=== PATIENT | female | born 2000 | race African-American/Black ===

== ENCOUNTER 2021-06-19 13:47 | Emergency (ER) | payer MEDICAID ==
[~2021-06-19] VITALS: Ht 172.7 cm; Wt 63.0 kg
[2021-06-19] MEDS ORDERED: MORPHINE SULFATE 4 MG/ML CPJ (NOT FOR IM USE) IV STA (14:00)
[2021-06-19] MEDS ORDERED: TETANUS, DIPHTHERIA, PERTUSSIS VAC/PF 0.5ML (>10YR OLD) IM ONE (14:00)
[2021-06-19] MEDS ORDERED: ONDANSETRON HCL 4MG/2ML INJ IV STA (14:00)
[2021-06-19] MEDS ORDERED: SODIUM CHLORIDE 0.9% 1,000 ML IV ONE (14:00)
[2021-06-19 14:59] LABS: BASOPHILS % 0.9 % (0.0-2.0); EOSINOPHILS % 0.8 % (0.0-5.0); HEMATOCRIT. 40.3 % (36.0-48.0); LYMPHOCYTES % 46.6 % (20.0-50.0); MEAN CORPUSCULAR HEMOGLOBIN 33.3 pg (28.0-32.0); MEAN PLATELET VOLUME 9.6 fl (7.4-10.4); MONOCYTES % 6.2 % (2.0-8.0); NEUTROPHILS % 45.5 % (40.0-76.0); PLATELET 177 x1000/uL (130-400); RED BLOOD CELL COUNT 4.19 mill/uL (4.2-5.4); RED CELL DISTRIBUTION WIDTH 13.1 % (11.6-14.6)
[2021-06-19 15:05] LABS: CHLORIDE 109 mEq/L (98-107)
[2021-06-19 15:12] LABS: HCG SCREEN NEGATIVE
[2021-06-19] MEDS ORDERED: IOHEXOL-300 100 ML BOTTLE ONE (16:13)
[2021-06-19 16:25] LABS: CLARITY URINE CLEAR (CLEAR); COLOR URINE YELLOW (YELLOW); KETONES URINE NEGATIVE (NEGATIVE); LEUKOCYTE ESTERASE URINE TRACE (NEGATIVE); NITRITE URINE NEGATIVE (NEGATIVE); OCCULT BLOOD URINE NEGATIVE (NEGATIVE); PROTEIN URINE NEGATIVE (NEGATIVE); SPECIFIC GRAVITY URINE 1.011 (1.005-1.030); UROBILINOGEN URINE 0.2 E.U./dL (0.2-1.0)
[2021-06-19] MEDS ORDERED: IBUP-2028 MT (17:52)
[2021-06-19] MEDS ORDERED: BO1 TP (17:52)
[2021-06-19] MEDS ORDERED: BACITRACIN ZINC OINT UDPKT TOP ONE (18:00)
[2021-06-19 19:08] VITALS: BP 115/62
== END 2021-06-19 19:12 | disposition home or self-care (01) ==
LOC: ER 13:47
DX: S31.813A Puncture wound without foreign body of right buttock, initial encounter (principal); W34.00XA Accidental discharge from unspecified firearms or gun, initial encounter; Y93.01 Activity, walking, marching and hiking; Y92.89 Other specified places as the place of occurrence of the external cause; Y99.8 Other external cause status
CPT/HCPCS: 36415; 74177; 80053; 81003; 83690; 84703; 85025; 86850; 86900; 86901; 90471; 90715; 96361; 96374; 96375; 99285; A4217; J2270; J2405; J7030; Q9967

== ENCOUNTER 2022-11-01 11:10 | Emergency (ER) | payer MEDICAID ==
[~2022-11-01] VITALS: Ht 167.6 cm; Wt 59.1 kg
[~2022-11-01 11:10] MED LIST: BO1 TP; IBUP-2028 MT
[2022-11-01 12:03] VITALS: O2SAT 100
[2022-11-01] MEDS ORDERED: KETOROLAC 30MG/ML VIAL IM ONE (12:45)
[2022-11-01 13:37] VITALS: BP 110/61; PULSE 82; RESP 16; TEMP 98.6
[2022-11-01] MEDS ORDERED: IBUP-2029 MT (14:29)
== END 2022-11-01 14:57 | disposition home or self-care (01) ==
LOC: ER 11:10
DX: M79.652 Pain in left thigh (principal); W01.0XXA Fall on same level from slipping, tripping and stumbling without subsequent striking against object, initial encounter; Y93.89 Activity, other specified; Y92.89 Other specified places as the place of occurrence of the external cause; Y99.8 Other external cause status
CPT/HCPCS: 73502; 73552; 73562; 81025; 99284

== ENCOUNTER 2024-08-25 14:40 | Emergency (ER) | payer MEDICAID ==
[~2024-08-25] VITALS: Ht 167.6 cm; Wt 74.0 kg
[~2024-08-25 14:40] MED LIST changes: +IBUP-2029 MT
[2024-08-25 14:44] VITALS: O2SAT 100
[2024-08-25 14:46] VITALS: BP 123/62; PULSE 63; RESP 16; TEMP 36.8; O2SAT 100
[2024-08-25 15:36] LABS: CLARITY URINE CLEAR (CLEAR); COLOR URINE YELLOW (YELLOW); GLUCOSE URINE NEGATIVE (NEGATIVE); KETONES URINE NEGATIVE (NEGATIVE); LEUKOCYTE ESTERASE URINE 1+ (NEGATIVE); NITRITE URINE NEGATIVE (NEGATIVE); OCCULT BLOOD URINE NEGATIVE (NEGATIVE); PH URINE 5.5 (4.5-8.0); PROTEIN URINE TRACE (NEGATIVE); SPECIFIC GRAVITY URINE 1.023 (1.005-1.030); UROBILINOGEN URINE 0.2 E.U./dL (0.2-1.0)
[2024-08-25 15:50] LABS: BACTERIA URINE TRACE; RBC URINE 0-2 /hpf (0-2); SQUAMOUS EPITHELIAL CELL URINE 2+ /lpf (RARE/1+)
[2024-08-25] MEDS ORDERED: NITR-87 MT (16:07)
[2024-08-28 04:07] LABS: CHLAMYDIA TRACHOMATIS NAA Negative (Negative); NEISSERIA GONORRHOEAE NAA Negative (Negative)
== END 2024-08-25 16:21 | disposition home or self-care (01) ==
LOC: ER 14:40
DX: Z11.3 Encounter for screening for infections with a predominantly sexual mode of transmission (principal)
CPT/HCPCS: 81003; 87491; 87591; 99283

== ENCOUNTER 2024-10-16 05:40 | Emergency (ER) | payer MEDICAID ==
[~2024-10-16] VITALS: Ht 162.6 cm; Wt 65.0 kg
[~2024-10-16 05:40] MED LIST changes: +NITR-87 MT
[2024-10-16 05:59] VITALS: O2SAT 100
[2024-10-16 06:49] LABS: BASOPHILS % 0.7 % (0.0-2.0); EOSINOPHILS % 0.5 % (0.0-5.0); HEMATOCRIT. 40.3 % (36.0-48.0); HEMOGLOBIN. 14.0 g/dL (12.0-16.0); LYMPHOCYTES % 27.2 % (20.0-50.0); MEAN PLATELET VOLUME 10.0 fl (7.4-10.4); MONOCYTES % 8.0 % (2.0-8.0); NEUTROPHILS % 63.6 % (40.0-76.0); PLATELET 162 x1000/uL (130-400); RED BLOOD CELL COUNT 4.22 mill/uL (4.2-5.4); RED CELL DISTRIBUTION WIDTH 13.3 % (11.6-14.6)
[2024-10-16 07:00] LABS: CREATININE 0.7 mg/dL (0.6-1.0); UREA NITROGEN BLOOD 14 mg/dL (9-23)
[2024-10-16 07:01] LABS: ETHANOL BLOOD < 10 mg/dL (<10)
[2024-10-16 07:02] LABS: ASPARTATE AMINOTRANSFERASE 20 IU/L (<34); BILIRUBIN DIRECT 0.1 mg/dL (<=3.0); BILIRUBIN TOTAL 0.6 mg/dL (0.1-1.0)
[2024-10-16 07:03] LABS: PROTEIN TOTAL 7.1 g/dL (6.0-8.3)
[2024-10-16 07:42] LABS: HCG SCREEN POSITIVE
[2024-10-16 08:02] LABS: CLARITY URINE CLEAR (CLEAR); COLOR URINE YELLOW (YELLOW); GLUCOSE URINE NEGATIVE (NEGATIVE); KETONES URINE 1+ (NEGATIVE); LEUKOCYTE ESTERASE URINE NEGATIVE (NEGATIVE); NITRITE URINE NEGATIVE (NEGATIVE); OCCULT BLOOD URINE NEGATIVE (NEGATIVE); PH URINE 5.5 (4.5-8.0); PROTEIN URINE 1+ (NEGATIVE); SPECIFIC GRAVITY URINE 1.026 (1.005-1.030); UROBILINOGEN URINE 0.2 E.U./dL (0.2-1.0)
[2024-10-16 08:25] LABS: BACTERIA URINE NONE SEEN; RBC URINE 0-2 /hpf (0-2); SQUAMOUS EPITHELIAL CELL URINE 2+ /lpf (RARE/1+); WBC URINE 0-2 /hpf (0-2); YEAST URINE NONE SEEN
[2024-10-16] MEDS ORDERED: METHYLPREDNISOLONE SOD SUCC 125MG/2ML (ACT-O-VIAL) IV ONE (08:30)
[2024-10-16] MEDS ORDERED: IPRATROPIUM/ALBUTEROL 0.5-3(2.5)MG/3ML NEB HHN ONE (08:30)
[2024-10-16 09:15] VITALS: BP 114/63; PULSE 57; RESP 13; TEMP 36.6; O2SAT 100
[2024-10-16 10:37] LABS: *AMPHETAMINES SCREEN URINE NEGATIVE (NEGATIVE); *BARBITURATES SCREEN URINE NEGATIVE (NEGATIVE); *BENZODIAZEPINES SCREEN URINE NEGATIVE (NEGATIVE); *COCAINE SCREEN URINE NEGATIVE (NEGATIVE)
[2024-10-16 10:38] LABS: CANNABINOID URINE SCREEN PRESUMPTIVE POSITIVE (NEGATIVE); ECSTASY MDMA SCREEN URINE NEGATIVE (NEGATIVE); METHADONE URINE SCREEN NEGATIVE (NEGATIVE); OPIATES URINE SCREEN NEGATIVE (NEGATIVE); PHENCYCLIDINE URINE SCREEN NEGATIVE (NEGATIVE)
== END 2024-10-16 09:30 | disposition home or self-care (01) ==
LOC: ER 05:40 → CANBEDREQ 08:57 → ER 09:30
DX: O20.0 Threatened abortion (principal); O26.891 Other specified pregnancy related conditions, first trimester; G40.909 Epilepsy, unspecified, not intractable, without status epilepticus; Z3A.01 Less than 8 weeks gestation of pregnancy
CPT/HCPCS: 36415; 76801; 80048; 80076; 80305; 80320; 81003; 84702; 84703; 85025; 86850; 86900; 99284; 99285; J2919; G0480

== ENCOUNTER 2024-11-29 23:26 | Emergency (ER) | payer MEDICAID ==
[~2024-11-29] VITALS: Ht 167.6 cm; Wt 75.0 kg
[~2024-11-29 23:26] MED LIST changes: +IBUP-1455 MT; -IBUP-2029 MT
[2024-11-29 23:42] VITALS: O2SAT 98
[2024-11-30 01:51] LABS: BASOPHILS % 0.7 % (0.0-2.0); EOSINOPHILS % 0.8 % (0.0-5.0); HEMATOCRIT. 33.9 % (36.0-48.0); HEMOGLOBIN. 11.9 g/dL (12.0-16.0); LYMPHOCYTES % 34.7 % (20.0-50.0); MEAN PLATELET VOLUME 9.0 fl (7.4-10.4); MONOCYTES % 8.7 % (2.0-8.0); NEUTROPHILS % 55.1 % (40.0-76.0); PLATELET 188 x1000/uL (130-400); RED BLOOD CELL COUNT 3.57 mill/uL (4.2-5.4); RED CELL DISTRIBUTION WIDTH 13.1 % (11.6-14.6)
[2024-11-30 02:05] LABS: CREATININE 0.6 mg/dL (0.6-1.0); UREA NITROGEN BLOOD 7 mg/dL (9-23)
[2024-11-30 02:26] LABS: B-HCG QUANTITATIVE 135542 mIU/mL (<6)
[2024-11-30 04:15] VITALS: BP 107/53; PULSE 55; RESP 17; TEMP 36.8; O2SAT 99
== END 2024-11-30 04:25 | disposition home or self-care (01) ==
LOC: ER 23:26
DX: O20.0 Threatened abortion (principal); N89.8 Other specified noninflammatory disorders of vagina; Z79.899 Other long term (current) drug therapy; Z3A.10 10 weeks gestation of pregnancy
CPT/HCPCS: 36415; 99285; 80048; 84702; 85025; 86850; 86900; 86901; 76801; 76817; Z7610

== ENCOUNTER 2025-03-01 23:32 | Emergency (ER) | payer MEDICAID ==
[~2025-03-01] VITALS: Ht 167.6 cm; Wt 78.1 kg
[2025-03-01 23:42] VITALS: TEMP 37.1; O2SAT 98
[2025-03-02 00:32] VITALS: TEMP 98.8
[2025-03-02] MEDS: ACETAMINOPHEN 500MG TABLET PO ONE (00:32)
[2025-03-02] MEDS: ONDANSETRON HCL 4MG/2ML INJ IV ONE (00:32)
[2025-03-02] MEDS: SODIUM CHLORIDE 0.9% 1,000 ML IV ONE (00:34)
[2025-03-02 01:10] LABS: CLARITY URINE CLEAR (CLEAR); COLOR URINE YELLOW (YELLOW); GLUCOSE URINE NEGATIVE (NEGATIVE); KETONES URINE 4+ (NEGATIVE); LEUKOCYTE ESTERASE URINE 2+ (NEGATIVE); NITRITE URINE NEGATIVE (NEGATIVE); OCCULT BLOOD URINE NEGATIVE (NEGATIVE); PH URINE 5.5 (4.5-8.0); PROTEIN URINE TRACE (NEGATIVE); SPECIFIC GRAVITY URINE 1.022 (1.005-1.030); UROBILINOGEN URINE 0.2 E.U./dL (0.2-1.0)
[2025-03-02 01:12] LABS: HEMATOCRIT. 35.9 % (36.0-48.0); HEMOGLOBIN. 12.2 g/dL (12.0-16.0); MEAN PLATELET VOLUME 10.5 fl (7.4-10.4); PLATELET 140 x1000/uL (130-400); RED BLOOD CELL COUNT 3.73 mill/uL (4.2-5.4); RED CELL DISTRIBUTION WIDTH 13.1 % (11.6-14.6)
[2025-03-02 01:16] LABS: CREATININE 0.7 mg/dL (0.6-1.0); UREA NITROGEN BLOOD < 5 mg/dL (9-23)
[2025-03-02 01:17] LABS: PROTEIN TOTAL 7.6 g/dL (6.0-8.3)
[2025-03-02 01:18] LABS: ASPARTATE AMINOTRANSFERASE 24 IU/L (<34); BILIRUBIN DIRECT 0.2 mg/dL (<=3.0); BILIRUBIN TOTAL 0.9 mg/dL (0.1-1.0)
[2025-03-02 01:42] LABS: RBC URINE 0-2 /hpf (0-2); SQUAMOUS EPITHELIAL CELL URINE 3+ /lpf (RARE/1+)
[2025-03-02 01:43] LABS: BACTERIA URINE 1+
[2025-03-02] MEDS: CEPHALEXIN 250MG CAPSULE PO ONE (01:44)
[2025-03-02] MEDS ORDERED: ONDA-239 PO (01:57)
[2025-03-02] MEDS ORDERED: CEPH500C2 MT (01:57)
[2025-03-02 02:10] VITALS: BP 110/46; PULSE 64; RESP 17; O2SAT 98
[2025-03-02 03:53] LABS: LYMPHOCYTES % MANUAL 6.0 % (20.0-60.0); MONOCYTES % MANUAL 5.0 % (2.0-8.0); NEUTROPHILS % MANUAL 89.0 % (45.0-75.0); PLATELET ESTIMATE NORMAL
[2025-03-02 04:36] LABS: INFLUENZA TYPE A Presumptive Negative (Pres. Neg.)
[2025-03-02 04:37] LABS: INFLUENZA TYPE B Presumptive Negative (Pres. Neg.)
== END 2025-03-02 02:14 | disposition home or self-care (01) ==
LOC: ER 23:32
DX: O99.119 Other diseases of the blood and blood-forming organs and certain disorders involving the immune mechanism complicating pregnancy, unspecified trimester (principal); R11.2 Nausea with vomiting, unspecified; N39.0 Urinary tract infection, site not specified; E87.1 Hypo-osmolality and hyponatremia; E87.6 Hypokalemia; Z3A.00 Weeks of gestation of pregnancy not specified; Z20.822 Contact with and (suspected) exposure to COVID-19
CPT/HCPCS: 93005; 96361; 96374; 99284; 80076; 80048; 81003; 83690; 83735; 85025; 87804 ×2; 36415; 87426; J2405; J7030; Z7610 ×2